=== PATIENT | female | born 1925 | race Caucasian/White ===

== ENCOUNTER 2017-04-07 09:06 | Emergency (ER) | payer MEDICARE ==
[~2017-04-07] VITALS: Ht 170.2 cm; Wt 81.6 kg
[~2017-04-07 09:06] MED LIST: ACET650S26 PO; ACID1TAB4 PO; CALC-555 PO; CARV3.122 PO; CRAN450T9 PO; DOCU-141 PO; DORZ10DR11 OP; FERR-58 PO; HYDR-3326 PO; LATA2.5D2 EACHEYE; LATA2.5D7 OP; LEVO25TA2 PO; ONDA4TAB5 PO; OXYM30SP NS; PANT40TA2 PO; PIPE3.379 IV; PROT946L PO; SUCR1ORA PO; Zolpidem Tartrate PO; [UNRECOGNIZED DRUG - OTHER] PO; vit c PO
[2017-04-07] MEDS ORDERED: [UNRECOGNIZED DRUG - CODE] PO (09:23)
[2017-04-07] MEDS ORDERED: ACET-2154 PO (09:23)
[2017-04-07] MEDS ORDERED: PANT40TA2 PO (09:23)
[2017-04-07] MEDS ORDERED: HYDROMORPHONE 1 MG/1 ML DISP.SYRIN IV ONE (09:30)
[2017-04-07] MEDS ORDERED: IV NORMAL SALINE 1000 ML BAG IV ONE (09:30)
[2017-04-07] MEDS ORDERED: ONDANSETRON 4 MG/2 ML VIAL IV ONE (09:30)
--- NOTE | 2017-04-07 09:30 | NUR ---
Dr atwood at the bedside for eval and exam.
[2017-04-07 09:51] LABS: BASOPHILS % (AUTO) 0.5 % (0.0-2.0); EOSINOPHILS % (AUTO) 0.7 % (0.0-7.0); HEMATOCRIT 39.8 % (31.2-41.9); HEMOGLOBIN 13.6 g/dL (10.9-14.3); LYMPHOCYTES # (AUTO) 0.6 K/uL (20.0-40.0); LYMPHOCYTES % (AUTO) 20.2 % (20.5-51.5); MEAN CORPUSCULAR HEMOGLOBIN 31.1 uug (24.7-32.8); MEAN CORPUSCULAR HGB CONC 34 g/dL (32.3-35.6); MEAN CORPUSCULAR VOLUME 91.2 fL (75.5-95.3); MONOCYTES # (AUTO) 0.5 K/uL (2.0-10.0); MONOCYTES % (AUTO) 15.8 % (0.0-11.0); NEUTROPHILS # (AUTO) 1.9 K/uL (1.8-8.9); NEUTROPHILS % (AUTO) 62.8 % (38.5-71.5); PLATELET COUNT (AUTO) 94 K/uL (179-408); RED BLOOD CELL COUNT(AUTO) 4.36 MIL/uL (3.63-4.92); WHITE BLOOD COUNT (AUTO) 3.1 K/uL (3.8-11.8)
[2017-04-07] MEDS ORDERED: ONDANSETRON 4 MG/2 ML VIAL ONE (09:53)
[2017-04-07] MEDS ORDERED: HYDROMORPHONE 4 MG/1 ML DISP.SYRIN ONE (09:54)
[2017-04-07 09:56] LABS: CARBON DIOXIDE 26 mmol/L (21-32); CHLORIDE 98 mmol/L (98-107); CREATININE 0.9 mg/dL (0.6-1.3); GLUCOSE 100 mg/dL (74-106); POTASSIUM 4.4 mmol/L (3.5-5.1); UREA NITROGEN, BLOOD 14 mg/dL (7-18)
--- NOTE | 2017-04-07 09:57 | NUR ---
PT out of ER for CT/Xray.
[2017-04-07 10:02] LABS: ALANINE AMINOTRANSFERASE 25 U/L (14-59); ALKALINE PHOSPHATASE 62 U/L (50-136); ASPARTATE AMINOTRANSFERASE 32 U/L (15-37); BILIRUBIN,DIRECT 0.1 mg/dL (0.0-0.2); BILIRUBIN,TOTAL 0.4 mg/dL (0.2-1.0); LIPASE 264 U/L (73-393); TOTAL PROTEIN, SERUM 6.9 g/dL (6.4-8.2)
[2017-04-07 11:16] LABS: BAND % (MANUAL) 7 % (0-10); BASOPHILS % (MANUAL) 1 % (0-2); LYMPHOCYTES % (MANUAL) 17 % (20-40); MONOCYTES % (MANUAL) 15 % (2-10); NEUTROPHILS % (MANUAL) 60 % (42-75)
[2017-04-07 11:23] LABS: *BILIRUBIN,URIN NEGATIVE (NEGATIVE); *BLOOD, URINE 2+ (NEGATIVE); *CLARITY,URINE TURBID (CLEAR); *COLOR,URINE YELLOW (YELLOW); *KETONES,URINE NEGATIVE (NEGATIVE); *PROTEIN,URINE 2+ (NEGATIVE); *UROBILINOGEN,URINE 0.2 E.U./dl (NORMAL); LEUKOCYTE ESTERASE ,URINE 3+ (NEGATIVE); NITRITE, URINE POSITIVE (NEGATIVE); UGLUCOSE NEGATIVE (NEGATIVE)
[2017-04-07 11:42] LABS: BACTERIA,URINE MANY /HPF (NONE SEEN); WBC,URINE TNTC /HPF (0-3)
[2017-04-07 11:44] LABS: SQUAMOUS EPITHELIAL CELL,UR NONE SEEN /HPF (NONE SEEN)
[2017-04-07] MEDS ORDERED: CEPHALEXIN MONOHYDRATE 500 MG CAPSULE PO ONE (12:00)
[2017-04-07] MEDS ORDERED: CEPHALEXIN MONOHYDRATE 500 MG CAPSULE ONE (12:13)
[2017-04-07 12:20] VITALS: BP 114/65
--- NOTE | 2017-04-07 12:33 | NUR ---
Patient discharged to home in stable conditon. Written and verbal after care instructions given. Patient verbalizes understanding of instructions.
== END 2017-04-07 12:34 | disposition home or self-care (01) ==
LOC: ER 09:06
DX: N39.0 Urinary tract infection, site not specified (principal); M81.0 Age-related osteoporosis without current pathological fracture; Z90.49 Acquired absence of other specified parts of digestive tract; K44.9 Diaphragmatic hernia without obstruction or gangrene; K57.30 Diverticulosis of large intestine without perforation or abscess without bleeding; I70.0 Atherosclerosis of aorta; I10 Essential (primary) hypertension; Z88.1 Allergy status to other antibiotic agents; Z88.2 Allergy status to sulfonamides; Z88.8 Allergy status to other drugs, medicaments and biological substances
CPT/HCPCS: 36415; 70030-TC; 71010; 83690; 85025; 85730; 87077; 87086; 93005; A4663; J1170; J2405; J7030

== ENCOUNTER 2017-04-12 20:12 | Inpatient (IN) | payer MEDICARE ==
[~2017-04-12] VITALS: Ht 157.5 cm; Wt 73.5 kg
[~2017-04-12 20:12] MED LIST changes: +ACET-2154 PO; -ACET650S26 PO; -ACID1TAB4 PO; -CALC-555 PO; -CRAN450T9 PO; -DOCU-141 PO; +DORZ10DR11 EACHEYE; -DORZ10DR11 OP; -FERR-58 PO; -HYDR-3326 PO; -LATA2.5D7 OP; -ONDA4TAB5 PO; -PIPE3.379 IV; -PROT946L PO; -SUCR1ORA PO; -Zolpidem Tartrate PO; +[UNRECOGNIZED DRUG - CODE] PO; -vit c PO
--- NOTE | 2017-04-12 20:20 | NUR ---
Pt is received alert, responsive as as she came from home with certified caregiver at bedside c/o Runny , Fever, Sore Throa and Nonproductive x1day. Her care continue as awaits MD orders.
[2017-04-12] MEDS ORDERED: AZITHROMYCIN IV 500 MG in IV DEXTROSE 5% 250 ML IV ONE (21:00)
[2017-04-12] MEDS ORDERED: CEFTRIAXONE 1 G in IV DEXTROSE 5% 50 ML IV ONE (21:00)
[2017-04-12 21:22] LABS: BASOPHILS % (AUTO) 0.3 % (0.0-2.0); EOSINOPHILS # (AUTO) 0.1 K/uL (0.0-0.7); HEMATOCRIT 34.3 % (31.2-41.9); HEMOGLOBIN 11.6 g/dL (10.9-14.3); LYMPHOCYTES # (AUTO) 0.6 K/uL (20.0-40.0); LYMPHOCYTES % (AUTO) 10.9 % (20.5-51.5); MEAN CORPUSCULAR HEMOGLOBIN 31.5 uug (24.7-32.8); MEAN CORPUSCULAR HGB CONC 34 g/dL (32.3-35.6); MEAN CORPUSCULAR VOLUME 92.6 fL (75.5-95.3); MONOCYTES # (AUTO) 0.6 K/uL (2.0-10.0); MONOCYTES % (AUTO) 11.7 % (0.0-11.0); NEUTROPHILS % (AUTO) 76.1 % (38.5-71.5); PLATELET COUNT (AUTO) 150 K/uL (179-408); WHITE BLOOD COUNT (AUTO) 5.3 K/uL (3.8-11.8)
[2017-04-12] MEDS ORDERED: CEFTRIAXONE 1 G VIAL ONE (21:23)
[2017-04-12 21:33] LABS: CARBON DIOXIDE 32 mmol/L (21-32); CHLORIDE 107 mmol/L (98-107); CREATININE 0.8 mg/dL (0.6-1.3); GLUCOSE 109 mg/dL (74-106); UREA NITROGEN, BLOOD 11 mg/dL (7-18)
[2017-04-12 21:45] LABS: ALANINE AMINOTRANSFERASE 25 U/L (14-59); ALKALINE PHOSPHATASE 60 U/L (50-136); ASPARTATE AMINOTRANSFERASE 22 U/L (15-37); BILIRUBIN,DIRECT 0.1 mg/dL (0.0-0.2); BILIRUBIN,TOTAL 0.5 mg/dL (0.2-1.0); TOTAL PROTEIN, SERUM 6.9 g/dL (6.4-8.2)
--- NOTE | 2017-04-12 21:57 | NUR ---
Call placed to [facility], Dr. Olivas will be paged.
--- NOTE | 2017-04-12 22:02 | NUR ---
[facility] speaking with Dr. Olivas
[2017-04-12] MEDS ORDERED: AZITHROMYCIN 500 MG VIAL IV ONE (22:08)
--- NOTE | 2017-04-12 22:37 | NUR ---
Pt is been admitted under the care off Dr. Olivas to Tele 2nd floor room 217 and Tylenol 1, 000mg po given headache.
[2017-04-12] MEDS ORDERED: ACETAMINOPHEN ES 500 MG TABLET PO ONE (22:45)
--- NOTE | 2017-04-12 22:49 | NUR ---
Pt remain alert, responsive as report is given to Nurse Carver on the 2nd floor as pt is going to room 217. Her care continue while monitor.
[2017-04-12] MEDS ORDERED: ACETAMINOPHEN ES 500 MG TABLET ONE (22:55)
[2017-04-12] MEDS ORDERED: HYDROCODONE/APAP 5-325MG TABLET PO PRN (23:45)
[2017-04-12] MEDS ORDERED: ONDANSETRON 4 MG/2 ML VIAL IV PRN (23:45)
[2017-04-12] MEDS ORDERED: MAGNESIUM HYDROXIDE 30 ML LIQUID UDC PO PRN (23:45)
[2017-04-12] MEDS ORDERED: ALBUTEROL SULFATE 1.25 MG/3 ML NEBU NEB PRN (23:45)
[2017-04-12] MEDS ORDERED: ACETAMINOPHEN 325 MG TABLET PO PRN (23:45)
[2017-04-12] MEDS ORDERED: ZOLPIDEM 5 MG TABLET PO PRN (23:45)
[2017-04-13 00:06] VITALS: BP 150/59
--- NOTE | 2017-04-13 01:14 | NUR ---
RECEIVED PATIENT FROM ER VIA GURNEY. NOTED PATIENT TO HAVE O2 VIA N.C. FOR SOB, ON O2 VIA N.C. AT 3 LITERS O2 SAT IS 98%. NOTED DIMINISHED LUNGS SOUNDS IN ALL LUNG MIJARES. PRODUCTIVE COUGH WITH NO SPUTUM OR PHLEGM. PATIENT SKIN PIGMENTATION APPEARS PALE. PATIENT WAS NOTED WITH COLOSTOMY ON LEFT SIDE ABDOMINAL WALL. IV SALINE LOCK TO LEFT UPPER ARM. PATIENT AND CAREGIVER AT BEDSIDE ORIENTED TO CALL LIGHT PROCEDURE AND ROOM ORIENTATION. CANDLE WICKER DEMONSTRATED BACK INSTRUCTION AT 100 %. PATIENT WAS NOTED TO HAVE ECCHYMOSIS ON LOWER LEFT FOLD OF ABD AND LEFT FOREARM AND PER CARE GIVE NOTED DISCOLORATION ON GROIN REGION. SKIN ASSESSMENT PERFORMED AND NOTED NO BREAKDOWN IN SACRUM. DID NOT HX OF OSTEOMYLITIS TO LEFT FOOT LATERAL PER CAREGIVER. PATIENT HAS HAD SEVERAL SURGICAL INTERVENTIONS IN THE PAST FOR THE OSTEO ON LEFT FOOT. TOOK PICTURE OF WOUND.
[2017-04-13 03:37] VITALS: BP 143/59
[2017-04-13 06:36] LABS: BASOPHILS % (AUTO) 0.4 % (0.0-2.0); EOSINOPHILS # (AUTO) 0.1 K/uL (0.0-0.7); EOSINOPHILS % (AUTO) 1.8 % (0.0-7.0); HEMATOCRIT 31.2 % (31.2-41.9); HEMOGLOBIN 10.5 g/dL (10.9-14.3); LYMPHOCYTES # (AUTO) 0.5 K/uL (20.0-40.0); LYMPHOCYTES % (AUTO) 13.8 % (20.5-51.5); MEAN CORPUSCULAR HGB CONC 34 g/dL (32.3-35.6); MEAN CORPUSCULAR VOLUME 92.2 fL (75.5-95.3); MONOCYTES # (AUTO) 0.5 K/uL (2.0-10.0); MONOCYTES % (AUTO) 13.8 % (0.0-11.0); NEUTROPHILS # (AUTO) 2.7 K/uL (1.8-8.9); NEUTROPHILS % (AUTO) 70.2 % (38.5-71.5); PLATELET COUNT (AUTO) 139 K/uL (179-408); RED BLOOD CELL COUNT(AUTO) 3.38 MIL/uL (3.63-4.92); WHITE BLOOD COUNT (AUTO) 3.8 K/uL (3.8-11.8)
[2017-04-13 07:30] LABS: ALANINE AMINOTRANSFERASE 18 U/L (14-59); ALKALINE PHOSPHATASE 49 U/L (50-136); ASPARTATE AMINOTRANSFERASE 17 U/L (15-37); BILIRUBIN,TOTAL 0.4 mg/dL (0.2-1.0); CHLORIDE 109 mmol/L (98-107); CHOLESTEROL 106 mg/dL (<200); CREATININE 0.7 mg/dL (0.6-1.3); GLUCOSE 99 mg/dL (74-106); HDL CHOLESTEROL 45 mg/dL (40-60); MAGNESIUM 1.7 mg/dL (1.8-2.4); PHOSPHOROUS 3.8 mg/dL (2.5-4.9); POTASSIUM 3.9 mmol/L (3.5-5.1); TOTAL PROTEIN, SERUM 6.1 g/dL (6.4-8.2); TRIGLYCERIDES 73 MG/DL (30-150); UREA NITROGEN, BLOOD 10 mg/dL (7-18)
[2017-04-13 07:39] LABS: CARBON DIOXIDE 30 mmol/L (21-32)
[2017-04-13] MEDS: LEVOTHYROXINE SODIUM 25 MCG TABLET PO SCH (07:53)
[2017-04-13] MEDS: PANTOPRAZOLE SODIUM 40 MG TABLET.DR PO SCH (07:53)
[2017-04-13] MEDS: CARVEDILOL 3.125 MG TABLET PO SCH ×2 (07:53→18:38)
[2017-04-13] MEDS: CALCIUM CARB/VITAMIN D 600-400 MG TABLET PO SCH (08:00)
[2017-04-13] MEDS: BETA CAROTENE/VIT C & E/MIN TABLET PO SCH (08:00)
--- NOTE | 2017-04-13 08:00 | NUR ---
RECEIVED PATIENT ON BED, AWAKE, A AND O X 4. NO ACUTE DISTRESS NOTED, ON TELEMETRY. RESPIRATIONS ARE EVEN AND UNLABORED, ON O2 @ 2LPM VIA NC, WELL TOLERATED. O2 SAT STABLE, PRODUCTIVE COUGH NOTED. WITH MIDLINE ON THE LEFT UPPER FOREARM, INTACT AND PATENT, FLUHED WITH SALINE PRN. WITH COLOSTOMY ON THE LEFT UPPER QUADRANT OF THE ABDOMEN, INTACT. STOMA IS PINK, NO ABNORMALITIES NOTED. ALL COMFORT MEASURES PROVIDED. CALL LIGHT WITHIN REACH AND ANSWERED IN A TIMELY MANNER. CAREGIVER AT BEDSIDE WILL CONTINUE TO MONITOR
[2017-04-13] MEDS ORDERED: [UNRECOGNIZED DRUG - OTHER] PO SCH (09:00)
[2017-04-13 09:08] LABS: THYROID STIMULATING HORMONE 2.339 mIU/mL (0.358-3.740)
--- NOTE | 2017-04-13 09:28 | NUR ---
SEEN AND EVALUATED BY PT RED, WAS ABLE TO TRANSFER AND SIT UP ON CHAIR. PT SAID SINCE PATIENTS PRIOR ACTIVITY AT HOME WAS BED REST AND WAS NON AMBULATORY, WILL NOT CONTINUE PT TREATMENT, BUT WILL ALLOW PATIENT TO SIT UP ON CHAIR DURING HOSPITAL STAY.
[2017-04-13 11:12] VITALS: BP 134/52
[2017-04-13] MEDS: DORZOLAMIDE/TIMOLOL OPHT DROP 10 ML BOTTLE EACHEYE SCH ×2 (12:06→18:38)
[2017-04-13] MEDS ORDERED: MAGNESIUM OXIDE 400 MG TABLET PO ONE (14:45)
[2017-04-13 15:14] VITALS: BP 138/66
--- NOTE | 2017-04-13 19:35 | NUR ---
PT RECEIVED IN BED, AWAKE. A/OX3. ABLE TO MAKE NEEDS KNOWN. TOP KNITTER AT BEDSIDE. V/S STABLE. IN NO ACUTE DISTRESS. NO C/O PAIN AT THIS TIME. MIDLINE INTACT AND PATENT. ON 2LNC, TOLERATING WELL. AFEBRILE. COLOSTOMY BAG INTACT AND PATENT. SAFETY MEASURES IMPLEMENTED. CALL LIGHT WITHIN REACH.
[2017-04-13 20:00] VITALS: BP 149/68
[2017-04-13] MEDS: OXYMETAZOLINE NASAL 0.05% 15 ML SPRAY NS PRN (20:26)
[2017-04-13] MEDS: LATANOPROST OPHT DROP 2.5 ML BOTTLE EACHEYE SCH (20:29)
[2017-04-13] MEDS: CEFTRIAXONE 1 G in IV DEXTROSE 5% 50 ML IV SCH (20:29)
[2017-04-13] MEDS: DOCUSATE SODIUM 100 MG CAPSULE PO SCH (20:29)
[2017-04-13] MEDS ORDERED: PANTOPRAZOLE SODIUM 40 MG TABLET.DR PO SCH (21:00)
[2017-04-14] MEDS: PANTOPRAZOLE SODIUM 40 MG TABLET.DR PO SCH (05:40)
[2017-04-14 06:01] VITALS: BP 163/53
--- NOTE | 2017-04-14 06:38 | NUR ---
SLEPT MOST OF THE NITE,IN NO DISTRESS.RESTING COMFORTABLY.
--- NOTE | 2017-04-14 08:00 | NUR ---
AWAKE ALERT COOPERATE WELL NO SOB OR PAIN AT THIS TIME HL INPLACE ON FALL AND ASPIRATION PRECAUTION BED ALARM ON AND CALL WEINER IN REACH
[2017-04-14 08:06] LABS: ALANINE AMINOTRANSFERASE 21 U/L (14-59); ALKALINE PHOSPHATASE 52 U/L (50-136); ASPARTATE AMINOTRANSFERASE 22 U/L (15-37); BILIRUBIN,TOTAL 0.4 mg/dL (0.2-1.0); CARBON DIOXIDE 33 mmol/L (21-32); CHLORIDE 105 mmol/L (98-107); CREATININE 0.7 mg/dL (0.6-1.3); GLUCOSE 93 mg/dL (74-106); MAGNESIUM 1.8 mg/dL (1.8-2.4); PHOSPHOROUS 3.6 mg/dL (2.5-4.9); POTASSIUM 3.8 mmol/L (3.5-5.1); TOTAL PROTEIN, SERUM 6.8 g/dL (6.4-8.2); UREA NITROGEN, BLOOD 9 mg/dL (7-18)
[2017-04-14 08:24] LABS: BASOPHILS % (AUTO) 0.5 % (0.0-2.0); EOSINOPHILS # (AUTO) 0.1 K/uL (0.0-0.7); EOSINOPHILS % (AUTO) 2.8 % (0.0-7.0); HEMATOCRIT 34.3 % (31.2-41.9); HEMOGLOBIN 11.5 g/dL (10.9-14.3); LYMPHOCYTES # (AUTO) 0.7 K/uL (20.0-40.0); LYMPHOCYTES % (AUTO) 18.8 % (20.5-51.5); MEAN CORPUSCULAR HEMOGLOBIN 30.7 uug (24.7-32.8); MEAN CORPUSCULAR HGB CONC 34 g/dL (32.3-35.6); MEAN CORPUSCULAR VOLUME 91.7 fL (75.5-95.3); MONOCYTES # (AUTO) 0.5 K/uL (2.0-10.0); MONOCYTES % (AUTO) 12.1 % (0.0-11.0); NEUTROPHILS # (AUTO) 2.6 K/uL (1.8-8.9); NEUTROPHILS % (AUTO) 65.8 % (38.5-71.5); PLATELET COUNT (AUTO) 171 K/uL (179-408); RED BLOOD CELL COUNT(AUTO) 3.75 MIL/uL (3.63-4.92); WHITE BLOOD COUNT (AUTO) 3.9 K/uL (3.8-11.8)
[2017-04-14] MEDS: CALCIUM CARB/VITAMIN D 600-400 MG TABLET PO SCH (08:35)
[2017-04-14] MEDS: BETA CAROTENE/VIT C & E/MIN TABLET PO SCH (08:36)
[2017-04-14] MEDS: ACETAMINOPHEN 325 MG TABLET PO PRN ×2 (08:36→20:01)
[2017-04-14] MEDS: OXYMETAZOLINE NASAL 0.05% 15 ML SPRAY NS PRN ×2 (08:37→20:02)
[2017-04-14] MEDS: DORZOLAMIDE/TIMOLOL OPHT DROP 10 ML BOTTLE EACHEYE SCH ×2 (08:38→16:55)
[2017-04-14] MEDS: LEVOTHYROXINE SODIUM 25 MCG TABLET PO SCH (08:39)
[2017-04-14] MEDS: CARVEDILOL 3.125 MG TABLET PO SCH ×2 (08:40→16:55)
--- NOTE | 2017-04-14 09:00 | NUR ---
REFUSED WOUND CARE NURSE TO LOOK AT OLD OPEN WOUND AT LEFT FOOT BUT IT WAS DRY CLEAN NO DRAINAGE KEEP CLEAN AND DRY
[2017-04-14 11:15] VITALS: BP 148/64
--- NOTE | 2017-04-14 12:00 | NUR ---
ASSIST UP IN W./C AND FIELD INTERVIEWER WHEEL HER AROUND THE TOVAR WAY NO SOB OR PAIN CONTINUE O2 AT 2L/MIN
[2017-04-14 15:19] VITALS: BP 118/62
--- NOTE | 2017-04-14 17:00 | NUR ---
STABLE CONDITION NO ACUTE DISTRESS PAIN UNDER CONTROL SAFETY MEASURE PROVIDED BED ALARM ON AND CALL LIGHT WITHIN REACH SUBMARINE ELEMENT COORDINATOR AT BEDSIDE
--- NOTE | 2017-04-14 19:45 | NUR ---
PT RECEIVED IN BED, AWAKE. SENIOR SOFTWARE TESTER AT BEDSIDE. A/OX3. ABLE TO MAKE NEEDS KNOWN. V/S STABLE. IN NO ACUTE DISTRESS. PT C/O OF HEADACHE 5/10 ON PAIN SCALE. WILL ADMIN TYLENOL ORDERED. IV INTACT AND PATENT. ON 2L NC, TOLERATING WELL. PT C/O OF NASAL CONGESTION. WILL ADMIN AFRIN ORDERED. COLOSTOMY BAG INTACT. SAFETY MEASURES IMPLEMENTED. BED ALARM SET. CALL LIGHT WITHIN REACH.
[2017-04-14 20:00] VITALS: BP 105/45
[2017-04-14] MEDS: DOCUSATE SODIUM 100 MG CAPSULE PO SCH (20:02)
[2017-04-14] MEDS: LACTOBACILLUS RHAMNOSUS GG 1 EACH CAPSULE PO SCH (20:02)
[2017-04-14] MEDS: LATANOPROST OPHT DROP 2.5 ML BOTTLE EACHEYE SCH (20:03)
[2017-04-14] MEDS: CEFTRIAXONE 1 G in IV DEXTROSE 5% 50 ML IV SCH (20:04)
[2017-04-14] MEDS: AZITHROMYCIN IV 500 MG in IV DEXTROSE 5% 250 ML IV SCH (21:34)
[2017-04-15 06:02] VITALS: BP 139/55
[2017-04-15] MEDS: PANTOPRAZOLE SODIUM 40 MG TABLET.DR PO SCH (06:24)
[2017-04-15] MEDS: LEVOTHYROXINE SODIUM 25 MCG TABLET PO SCH (06:24)
--- NOTE | 2017-04-15 06:36 | NUR ---
END OF SHIFT NOTES. PT SLEPT WELL THROUGHOUT SHIFT. IN STABLE CONDITION. IV ABX INFUSED. ON 2LNC, TOLERATING WELL. NO C/O SOB. AFEBRILE. COLOSTOMY BAG EMPTIED, AND INTACT. ALL NEEDS ATTENDED. SAFETY MAINTAINED. CALL LIGHT WITHIN REACH.
[2017-04-15 07:23] LABS: BASOPHILS % (AUTO) 0.6 % (0.0-2.0); EOSINOPHILS # (AUTO) 0.1 K/uL (0.0-0.7); EOSINOPHILS % (AUTO) 3.4 % (0.0-7.0); HEMATOCRIT 32.3 % (31.2-41.9); HEMOGLOBIN 10.9 g/dL (10.9-14.3); LYMPHOCYTES # (AUTO) 0.8 K/uL (20.0-40.0); LYMPHOCYTES % (AUTO) 21.1 % (20.5-51.5); MEAN CORPUSCULAR HEMOGLOBIN 31.3 uug (24.7-32.8); MEAN CORPUSCULAR HGB CONC 34 g/dL (32.3-35.6); MEAN CORPUSCULAR VOLUME 92.5 fL (75.5-95.3); MONOCYTES # (AUTO) 0.4 K/uL (2.0-10.0); MONOCYTES % (AUTO) 10.7 % (0.0-11.0); NEUTROPHILS # (AUTO) 2.3 K/uL (1.8-8.9); NEUTROPHILS % (AUTO) 64.2 % (38.5-71.5); PLATELET COUNT (AUTO) 180 K/uL (179-408); RED BLOOD CELL COUNT(AUTO) 3.49 MIL/uL (3.63-4.92); WHITE BLOOD COUNT (AUTO) 3.6 K/uL (3.8-11.8)
--- NOTE | 2017-04-15 07:30 | NUR ---
Awake, alert, oriented x 3, on moderate high back rest, complaining of noise outside. O2 at 2L/NC, complaining of "clogged up nose" Verbalized wanting to go home
[2017-04-15 07:35] LABS: CARBON DIOXIDE 35 mmol/L (21-32); CHLORIDE 102 mmol/L (98-107); CREATININE 0.8 mg/dL (0.6-1.3); GLUCOSE 90 mg/dL (74-106); MAGNESIUM 1.8 mg/dL (1.8-2.4); PHOSPHOROUS 3.9 mg/dL (2.5-4.9); UREA NITROGEN, BLOOD 10 mg/dL (7-18)
--- NOTE | 2017-04-15 09:00 | NUR ---
RA O2 Sat 75%, Placed back to O2 at 3L/NC with O2 sat of 93%
[2017-04-15 09:05] VITALS: BP 150/88
[2017-04-15] MEDS: CARVEDILOL 3.125 MG TABLET PO SCH ×2 (09:24→17:24)
[2017-04-15] MEDS: CALCIUM CARB/VITAMIN D 600-400 MG TABLET PO SCH (09:25)
[2017-04-15] MEDS: BETA CAROTENE/VIT C & E/MIN TABLET PO SCH (09:25)
[2017-04-15] MEDS: DORZOLAMIDE/TIMOLOL OPHT DROP 10 ML BOTTLE EACHEYE SCH ×2 (09:25→17:23)
[2017-04-15] MEDS: OXYMETAZOLINE NASAL 0.05% 15 ML SPRAY NS PRN (09:25)
[2017-04-15] MEDS: LACTOBACILLUS RHAMNOSUS GG 1 EACH CAPSULE PO SCH ×2 (09:25→21:49)
--- NOTE | 2017-04-15 10:00 | NUR ---
Caregiver at bedside. Assisted to the wheelchair, wheeled along the hallway with O2.
[2017-04-15 12:19] VITALS: BP 123/49
--- NOTE | 2017-04-15 15:00 | NUR ---
Assisted back to bed. Repositioned comfortably.
[2017-04-15 15:57] VITALS: BP 132/51
--- NOTE | 2017-04-15 17:56 | NUR ---
O2 at 2L/NC with O2 sat of 97%. On moderate high back rest.
--- NOTE | 2017-04-15 19:30 | NUR ---
PT RECEIVED IN BED, AWAKE. A/OX3. ABLE TO MAKE NEEDS KNOWN. MOLD FORMS BUILDER AT BEDSIDE. V/S STABLE. IN NO ACUTE DISTRESS. NO C/O PAIN AT THIS TIME. ON 2L NC, TOLERATING WELL. AFEBRILE. COLOSTOMY BAG INTACT AND PATENT. SAFETY MEASURES IMPLEMENTED. CALL LIGHT WITHIN REACH.
--- NOTE | 2017-04-15 21:45 | NUR ---
PT TRANSFERRED TO ACUTE REHAB MED SURG OVERFLOW, VIA WHEELCHAIR. IN STABLE CONDITION. CHART AND MEDS SENT DOWN WITH PATIENT. ALL NEEDS ATTENDED. SAFETY MAINTAINED. CALL LIGHT WITHIN REACH.
[2017-04-15] MEDS: DOCUSATE SODIUM 100 MG CAPSULE PO SCH (21:49)
[2017-04-15] MEDS: LATANOPROST OPHT DROP 2.5 ML BOTTLE EACHEYE SCH (21:50)
[2017-04-15] MEDS: CEFTRIAXONE 1 G in IV DEXTROSE 5% 50 ML IV SCH (21:50)
[2017-04-15 22:00] VITALS: BP 141/63
--- NOTE | 2017-04-15 22:00 | NUR ---
Pt was transferred via wheelchair with no signs of distress. Caregiver at bedside. On o2 2LPM NC, no shortness of breath noted. All due meds given as ordered and well tolerated. IV on right hand intact and patent. safety and fall precautions observed and maintained. Call light within reach. Kept clean, dry and comfortable. All needs attended.
[2017-04-15] MEDS: AZITHROMYCIN IV 500 MG in IV DEXTROSE 5% 250 ML IV SCH (23:04)
--- NOTE | 2017-04-16 05:36 | NUR ---
Pt slept comfortably throughout the shift. No acute distress noted. No complaints of pain or discomfort. Breathing even and unlabored with normal respirations. Frequently checked for safety. Kept clean, dry and comfortable. Call light within reach. All needs attended.
[2017-04-16] MEDS: LEVOTHYROXINE SODIUM 25 MCG TABLET PO SCH (06:29)
[2017-04-16] MEDS: PANTOPRAZOLE SODIUM 40 MG TABLET.DR PO SCH (06:29)
--- NOTE | 2017-04-16 07:20 | NUR ---
Received patient awake, lying on bed on a semi- fiore's position with no SOB, distress or discomforts. IV line on right hand noted patent and intact. No signs of any infection noted on the site. All needs were attended and anticipated. call light placed within reach. patient was encouraged to use call light whenever assistance is needed. will continue to monitor closely.
[2017-04-16 08:39] VITALS: BP 150/70
[2017-04-16] MEDS: LACTOBACILLUS RHAMNOSUS GG 1 EACH CAPSULE PO SCH (09:03)
[2017-04-16] MEDS: BETA CAROTENE/VIT C & E/MIN TABLET PO SCH (09:03)
[2017-04-16] MEDS: CALCIUM CARB/VITAMIN D 600-400 MG TABLET PO SCH (09:03)
[2017-04-16 09:04] VITALS: BP 140/70
[2017-04-16] MEDS: CARVEDILOL 3.125 MG TABLET PO SCH (09:04)
[2017-04-16] MEDS: DORZOLAMIDE/TIMOLOL OPHT DROP 10 ML BOTTLE EACHEYE SCH (09:07)
--- NOTE | 2017-04-16 12:09 | NUR ---
PATIENT NOTED AWAKE, LYING ON BED ON A HIGH LANDRY'S POSITION. ASSESSED PATIENT'S OXYGEN SATURATION WITH OXYGEN AT 2L/MIN NOTED OXYGEN SATURATION 98%. REMOVED PATIENT'S OXYGEN OXYGEN SATURATION WENT DOWN TO 87 % ON ROOM AIR. PUT BACK PATIENT'S OXYGEN. WILL CONTINUE TO MONITOR CLOSELY.
[2017-04-16] MEDS ORDERED: LACT1CAP57 PO (15:07)
--- NOTE | 2017-04-16 16:50 | NUR ---
PATIENT WAS DISCHARGED HOME IN STABLE CONDITION ORDERED BY DR. URIEL TRUJILLO. HEALTH TEACHINGS WERE GIVEN TO BOTH PATIENT AND HER 24 HR CAREGIVER, TYREE. PATIENT AND CAREGIVER VERBALIZED THEIR UNDERSTANDING WITH THE TEACHINGS PROVIDED. ALL BELONGINGS WERE CHECKED AND ALL COMPLETE. PATIENT WAS DISCHARGED WITH SKIN INTACT AND WITH COLOSTOMY. COLOSTOMY BAG EMPTIED. PATIENT AND CAREGIVER REFUSED TO TAKE A PICTURE OF THE COLOSTOMY SITE PRIOR TO DISCHARGE. EXPLAINED THE BENEFITS STILL PATIENT AND CAREGIVER REFUSED. INSTRUCTED THE PATIENT AND THE CAREGIVER THAT THE PATIENT NEEDS A FOLLOW- UP APPT WITH HER PCP IN 1-2 WEEKS. PATIENT AND CAREGIVER WERE INSTRUCTED THAT THE PATIENT WILL BE FOLLOWED BY ASSISTED HOME HEALTH, BROCHURE PROVIDED. PATIENT WAS DISCHARGED WITH BP: 128/71, HR: 63, O2 SAT: 98% AT 2L/MIN VIA NC AND TEMP: 97.9 F TAKEN ORALLY. ACCOMPANIED THE PATIENT TO PRIVATE VEHICLE WITH OXYGEN VIA NASAL CANNULA AT 2L/MIN. ALSO INSTRUCTED THE CAREGIVER THAT THE HOSPITAL BED AND OXYGEN CONCENTRATOR TANK WILL BE DELIVERED AT HOME ARRANGED BY CLEANING MAID. BIOLOGY INSTRUCTOR VERBALIZED UNDERSTANDING.
== END 2017-04-16 16:50 | disposition home health service (06) | DRG 193 ==
LOC: ER 20:18 → TELE 23:27 → MED 04-13 11:50 → MEDSURG1 04-15 20:32
PROVIDERS: ADMIT Internal Medicine; ATTEND Internal Medicine
DX: J18.9 Pneumonia, unspecified organism (principal); E43 Unspecified severe protein-calorie malnutrition; J96.01 Acute respiratory failure with hypoxia; I50.33 Acute on chronic diastolic (congestive) heart failure; D68.59 Other primary thrombophilia; R53.2 Functional quadriplegia; E83.42 Hypomagnesemia; D64.9 Anemia, unspecified; D69.6 Thrombocytopenia, unspecified; I11.0 Hypertensive heart disease with heart failure; H40.9 Unspecified glaucoma; I25.10 Atherosclerotic heart disease of native coronary artery without angina pectoris; I25.2 Old myocardial infarction; Z85.3 Personal history of malignant neoplasm of breast; Z86.73 Personal history of transient ischemic attack (TIA), and cerebral infarction without residual deficits; Z90.49 Acquired absence of other specified parts of digestive tract; M81.0 Age-related osteoporosis without current pathological fracture; Z93.3 Colostomy status; R53.1 Weakness; K43.9 Ventral hernia without obstruction or gangrene; M41.9 Scoliosis, unspecified; I49.9 Cardiac arrhythmia, unspecified; Z68.29 Body mass index [BMI] 29.0-29.9, adult; Z88.2 Allergy status to sulfonamides
CPT/HCPCS: 36415; 70030-TC; 71010; 83605; 83735; 84100; 84443; 85025; 87040; 93005; A4663; J0456; J0696; J2405; J7060